=== PATIENT | female | born 1965 | race Caucasian/White ===

== ENCOUNTER 2016-09-21 06:18 | Inpatient (IN) | payer OTHER ==
[2016-09-14 13:19] LABS: HEMATOCRIT 36.1 % (37.0-47.0); HEMOGLOBIN 12.3 gm/dL (12.0-15.0); MCH 29.8 pg (26.0-34.0); MCHC 34.2 g/dL (28.0-37.0); RBC 4.14 mil/uL (4.20-5.00); RDW 13.3 % (10.5-14.5); WBC 7.2 thou/uL (4.0-11.0)
[2016-09-14 13:22] LABS: URINE BILIRUBIN NEGATIVE (Negative); URINE BLOOD TRACE (Negative); URINE COLOR YELLOW; URINE GLUCOSE-RANDOM* NEGATIVE (Negative); URINE KETONES NEGATIVE (Negative); URINE LEUKOCYTES-REFLEX NEGATIVE (Negative); URINE PROTEIN (DIPSTICK) NEGATIVE (Negative); URINE UROBILINOGEN 0.2 E.U./dl (0.2-1.0)
[2016-09-14 13:33] LABS: ALBUMIN 3.4 g/dL (3.4-5.0); CALCIUM 9.2 mg/dL (8.5-10.1); CREATININE 0.9 mg/dL (0.6-1.0); POTASSIUM 3.7 mmol/L (3.5-5.1)
[2016-09-14 13:35] LABS: PROTIME 10.2 Seconds (9.3-11.4)
[~2016-09-21] VITALS: Ht 167.6 cm; Wt 66.8 kg
--- NOTE | ~2016-09-21 | HC ---
[facility] [place] [address] CONSULTATION Name: AMARIS MABRY Room #: 406-P [facility] IN .R.#: [id number] Admission: 10/12/16 Attend Phys: Joseph Cisneros MD Discharge: Date of : 67 Report #: [id number] THIS REPORT FOR: //name// CC: Maria R Cisneros DATE OF SERVICE: 10/14/2016 HISTORY OF PRESENT ILLNESS: The patient is a 51-year-old white female with bilateral total hip arthroplasty, chronic pain syndrome was admitted with a loose left acetabular cup. She underwent surgical intervention and was noted to have an infected left total hip arthroplasty. She underwent explantation with placement of the spacer 10/12/2016. She is limited to toe touch weightbearing. We are seeing her in rehabilitation medicine consultation. PAST MEDICAL HISTORY: As noted above. She also has a history of ADD. HABITS: Positive tobacco usage. Occasional alcohol. No history of drug abuse. ALLERGIES: No known drug allergies. MEDICATIONS: Please see the full medication listing. SOCIAL HISTORY: Lives in a house with her , 2 steps in. Premorbidly utilized a walker, noted to be a 4-wheeled walker. She has been on IV vancomycin before in the past. There is a sister visiting from [place] that could assist with her. The apparently works during the day. REVIEW OF SYSTEMS: Did not offer any current complaints of chest pain, shortness of breath or abdominal discomfort. She has some left hip discomfort as expected. Denies any problems with her right total hip replacement. PHYSICAL EXAMINATION: GENERAL: She is a pleasant, slender 51-year-old white female in no obvious distress. VITAL SIGNS: Last recorded temp 98.2, pulse 86, respirations 18, blood pressure 131/79. She is alert, oriented, appropriate. HEENT: Appeared to be benign. NEUROLOGIC: Cranial nerves are grossly intact. Facies are symmetric. EXTREMITIES: She has functional range of motion of both upper extremities without obvious focal weakness. DTRs are 1. In her lower extremities, she has an old right total hip replacement incision intact. No calf swelling. Appears to have good strength of that right lower extremity. Left hip incision is dressed. There is no focal calf swelling. She has discomfort moving that left hip. She can move the left knee with strength, probably a grade 4- to 4/5. Left ankle dorsiflexion appeared to be at a 4+/5. Tone appeared intact. She [address] [address] CONSULTATION Name: AMARIS MABRY Room #: 406-P [facility] IN ..#: [id number] Admission: 10/12/16 Attend Phys: Joseph Cisneros MD Discharge: Date of : 67 Report #: [id number] was min assist with sit to stand. Gait was 2 feet contact guard front-wheeled walker. Toilet transfers are min assist. ASSESSMENT: A 51-year-old white female with the following problems: 1. 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 2. Prior right total hip hemiarthroplasty. 3. Chronic pain syndrome, on methadone. 4. Attention deficit disorder. PLAN: The patient is continuing in therapy evaluations. Insurance will be checked regarding a potential acute in-hospital inpatient rehabilitation stay. Infectious Disease is following closely as well as Orthopedics and they could continue to follow while the patient is on the acute inpatient rehab pineda. We will be glad to follow along with you regarding rehab therapy needs. <ELECTRONICALLY SIGNED> By: Mathew Bagley MD 10/14/16 1350 1258 1335 Mathew Bagley MD /nt
--- NOTE | ~2016-09-21 | O ---
[facility] [place] [address] OPERATIVE REPORT Name: AMARIS MABRY Room #: 406-P [facility] IN M.R.#: [id number] Admission: 10/12/16 Attend Phys: Joseph Cisneros MD Discharge: Date of : 67 Report #: [id number] THIS REPORT FOR: //name// CC: Maria R Cisneros DATE OF SERVICE: 10/12/2016 PREOPERATIVE DIAGNOSIS: Loose acetabular cup, total hip arthroplasty. POSTOPERATIVE DIAGNOSIS: Infected left total hip arthroplasty. PROCEDURE: 1. Explant left total hip arthroplasty. 2. Extended trochanteric osteotomy with repair. 3. Placement of antibiotic cement spacer, left hip. SURGEON: Jospeh Cisneros MD APPRENTICE MACHINIST OUTSIDE: Barbara Jean PA-C. ANESTHESIA: General endotracheal. IMPLANTS: Two Terrazas and Nephew Accord cerclage cables for fixation of extended trochanteric osteotomy. ESTIMATED BLOOD LOSS: 300 mL. SPECIMENS: Cultures were taken x 2 as well as intraoperative frozen section was performed which showed multiple neutrophils per high power field on 1 specimen. CONDITION UPON LEAVING THE OR: Stable. INDICATIONS FOR PROCEDURE: The patient is a 51-year-old female who has previously undergone left total hip arthroplasty several years ago by Dr. Gopi Rosa. In her acute postop period, she had subsidence of her stem and a fracture of her femur that was treated with a removal of the stem and cerclage cable and reimplantation. She subsequently added infection that was treated with a debridement. She subsequently has had continued left hip and groin pain for several years and presented to me for a second opinion. She had obvious lucency surrounding her acetabulum and workup for infection was performed. Aspiration of the hip joint was negative for any fluid. Her sed rate and CRP were normal and it was felt that we could proceed with possible revision with possibility of antibiotic spacer placement if infection was found at time of surgery. She understood the risk and benefit of this and agreed to proceed. [facility] [address] [place] [address] OPERATIVE REPORT Name: AMARIS MABRY Room #: 406-P [facility] IN [facility].#: [id number] Admission: 10/12/16 Attend Phys: Joseph Cisneros MD Discharge: Date of : 67 Report #: [id number] DESCRIPTION OF PROCEDURE: Risks, benefits, alternatives and complications were discussed in detail with the patient including but not limited to risk of anesthesia, risk of damage to nerves, arteries, blood vessels, risk for infection, blood loss, intraoperative fracture, need for reoperation. Informed consent was obtained from the patient. The left hip was appropriately marked in the preoperative holding area. IV Ancef was given for preoperative antibiotics. She was brought to the operating room and placed in supine position on operating room table. General endotracheal anesthesia was induced without complication. She was then placed in the right lateral decubitus position with left hip uppermost. Left hip and lower extremity were prepped and draped in normal sterile fashion. Timeout was performed properly identifying the patient, procedure as well as the instrumentation. All in the operating room were in agreement. A standard posterior approach to the hip was made with a 10 blade through the skin. Dissection was taken down to the fascia with Bovie cautery and cleaned off with Odom elevator. A fresh #10 blade was used to make a fascial incision. This was taken proximally and distally with curved Yan scissor. Charnley retractor was placed and trochanteric bursa was taken down with Bovie cautery. Piriformis tendon was identified, tagged and taken down with Bovie. The short external rotators were also taken down with Bovie cautery. Capsulotomy was made and upon entering the capsule, there was small fluid and cultures of this were taken x 2. Capsular ends were tagged for later repair. The hip was dislocated and the femoral head was removed from the stem. Slap Hammer was placed on the stem and this was back slapped to see if it was unstable and it was not. Deep acetabular retractors were placed. Three separate synovial tissue specimens were sent to pathology for intraoperative frozen section where these specimens came back with multiple neutrophils per high power field. It was felt this was consistent with chronic infection given her history and clinical findings. The acetabular cup was actually loose and was easily removed without any sort of dissection or Slap Hammer. Behind this there was obvious fibrous tissue with several cystic areas of the bone that were curetted out. Acetabulum was then reamed to a size 51 to get down to good bleeding cancellous bone. Given that this was an infection, it was felt that complete removal of the hardware would be necessary and attention was turned to the stem. Rigid and flexible osteotomes were then used to dissect around the proximal portion of the stent. Multiple attempts to remove the stem with a Slap Hammer were made without success. After prolonged effort in trying to remove the stems out, it was felt that an extended trochanteric osteotomy would be needed. The incision was then taken distally with a 10 blade and deep dissection was made. The vastus lateralis was retracted anteriorly. An oscillating saw was used to make extended trochanteric osteotomy longitudinally along the posterior border of the femur and around the lateral aspect of the femur. Osteotome was then used to crack the osteotomy with clamshell to open the femur. The stem was still well fixed and had to be removed using an osteotome. After this, the femur and acetabulum were thoroughly irrigated with normal saline using pulse lavage. The extended trochanteric osteotomy was fixed with 2 Terrazas and Nephew Accord cerclage cables. Antibiotic cement was then [facility] [address] [place] [address] OPERATIVE REPORT Name: AMARIS MABRY Room #: 406-P [facility] IN .R.#: [id number] Admission: 10/12/16 Attend Phys: Joseph Cisneros MD Discharge: Date of : 67 Report #: [id number] mixed on the back table, which was 1 gram of vancomycin, 1.2 grams of tobramycin per bag and a pediatric suction bulb was used to form a femoral head. This was then placed on cement that went down into the canal of the femur and the hip was reduced and held reduced while the cement hardened. After this, the wound was again thoroughly irrigated. A deep drain was placed. The piriformis was repaired with 0 FiberWire. The fascia was closed with 0 Vicryl, skin was closed with 2-0 Vicryl, skin haydee and Prevena dressings were applied. The patient tolerated this procedure well and went to the recovery room under care of anesthesia postoperatively. <ELECTRONICALLY SIGNED> By: Joseph Cisneros MD 10/13/16 0814 1418 1516 Joseph Cisneros MD /nt
--- NOTE | ~2016-09-21 | EKG ---
[place] [address] [facility] [place] [address] ELECTROCARDIOGRAM REPORT Name: AMARIS MABRY Ramesh Room #: [facility]#: [id number] Admission: Attend Phys: Joseph Cisneros MD Discharge: Date of : 67 Report #: [id number] THIS REPORT FOR: //name// [facility] Test Date: 2016-09-14 Test Time: 13:18:11 Pat Name: AMARIS MABRY Department: Room: Gender: F [employer]: leanne : 1965 Requested By: Joseph Cisneros Order Number: [id number] MD: Giuliano Lewis Measurements Intervals [place] Rate: 68 P: 64 NV: 162 QRS: 52 QRSD: 100 T: 54 QT: 454 QTc: 483 Interpretive Statements Sinus rhythm Abnormal R-wave progression, early transition Baseline wander in lead(s) V5 No previous ECG available for comparison Electronically Signed On 09-14-2016 18:15:11 CDT by Giuliano Lewis [email or web address] <ELECTRONICALLY SIGNED> By: Giuliano Lewis MD, [facility] 09/14/16 1815 1318 1318 Giuliano Lewis MD, FACC /EPI
--- NOTE | ~2016-09-21 | S ---
[facility] [place] [address] SURGICAL PATH RPT PROCEDURE Name: AMARIS MABRY Room #: 406-P ADM IN M.R.#: [id number] Admission: 10/12/16 Date of : 67 Discharge: Report #: [id number] Path Case #: [id number] PATHOLOGY REPORT COLLECTION DATE: 10/12/2016 RECEIVED DATE: 10/12/2016 SUBMITTING PHYS: Dr. Joseph Cisneros OTHER PHYS: Dr. Maria R Orellana SPECIMEN(S) RECEIVED: A.Synovium left hip * * * * * * * * * * * * FINAL DIAGNOSIS: Synovium, left hip synovium, biopsy: - Acute inflammation with approximately 16-20 neutrophils/HPF associated with fibrinoid necrosis identified in a few fragments. - Remainder fragments devoid of any inflammatory changes. (IUV:leticia; 10/13/2016) COMMENT: Irrigation Flume Layer slides (A1) are co-reviewed by Dr. Radha Turner, who concurs with my diagnosis. (IUV:leticia; 10/13/2016) PATHOLOGIST: Joyce Pang M.D. REPORT ELECTRONICALLY SIGNED BY: Joyce Pang M.D. DATE/TIME: 10/13/2016 16:39 * * * * * * * * * * * * GROSS PATHOLOGY: Received fresh from the OR, labeled, "Jeffrey Synovium left hip", is a red to pink-melara fragment of tissue. Few showing blue-green discoloration measuring an aggregate of 3.0 x 3.0 cm. Irrigation Flume Layer sections are submitted for frozen section as FSA1, subsequently submitted for permanent sections as A1. The unfrozen portion of the tissue is submitted in entirety for permanent sections as A2. (IUV:mml; 10/12/2016) FROZEN SECTION DIAGNOSIS: (Joyce Pang MD) FSA1. Synovium, left hip, biopsy: - Greater than 12 neutrophils per HPF along with a fragment of fibrinoid degeneration. The findings are discussed with Dr. Joseph Cisneros in OR2 at [facility] and a written report is placed in the patient's chart. [facility] [place] [address] SURGICAL PATH RPT PROCEDURE Name: AMARIS MABRY Room #: 406-P [facility] IN .R.#: [id number] Admission: 10/12/16 Date of : 67 Discharge: Report #: [id number] Path Case #: [id number] (IUV:mml; 10/12/2016) Testing performed by [facility] at [facility] [address] [place] [address] CLINICAL HISTORY: Left hip retained hardware, undergoing total hip revision. INITIAL CPT CODE(S): A; 62323, 49779 Professional services performed by [facility] at [facility] [address] [place] [address] Technical services performed by [facility] at [address] [place] [address], [address], [place] [address]. [facility] [address] [place] [address] PHONE: [phone] DIRECTOR: Bakari Trevino M.D. * * * END OF REPORT * * *
--- NOTE | ~2016-09-21 | O ---
[facility] [place] [address] OPERATIVE REPORT Name: AMARIS MABRY Room #: 406-P [facility]..#: [id number] Admission: 10/12/16 Attend Phys: Joseph Csineros MD Discharge: 10/23/16 Date of : 67 Report #: [id number] THIS REPORT FOR: //name// CC: Maria R Cisneros DATE OF SERVICE: 10/19/2016 PREOPERATIVE DIAGNOSIS: Dislocated left hip antibiotic cement spacer. POSTOPERATIVE DIAGNOSIS: Dislocated left hip antibiotic cement spacer. PROCEDURE: 1. Revision left hip antibiotic cement spacer. 2. Debridement and irrigation, left hip joint. SURGEON: Joseph Cisneros MD. TILE AND MARBLE INSTALLER: Barbara Jean PA-C. ANESTHESIA: General endotracheal. ESTIMATED BLOOD LOSS: 100 mL. COMPLICATIONS: Further fracture of the extended trochanteric osteotomy needing to be fixed with one Accord cable. SPECIMENS: Cultures were taken times 2. CONDITION UPON LEAVING THE OPERATING ROOM: Stable. INDICATIONS FOR PROCEDURE: The patient is a 51-year-old female who previously has had an explantation of her left total hip arthroplasty secondary to infection. She initially had an articulating spacer placed and on 10/18/2016, x-ray was taken secondary to increased pain showed her to have a dislocation of her spacer. After discussion with she and her family, they elected for revision of the antibiotic cement spacer. DESCRIPTION OF PROCEDURE: Risks, benefits, alternatives, complications were discussed in detail with the patient including but not limited to risk of anesthesia, risk of damage to nerves, arteries, blood vessels, risk for further fracture, infection and need for reoperation. Informed consent was obtained from the patient. Left hip was appropriately marked in the preoperative holding area. She was brought to the operating room and placed in supine position on operating room table. General endotracheal anesthesia was induced without complications and then placed in the right lateral decubitus position with the [facility] [address] [place] [address] OPERATIVE REPORT Name: AMARIS MABRY Room #: 406-P [facility] IN ..#: [id number] Admission: 10/12/16 Attend Phys: Joseph Cisneros MD Discharge: 10/23/16 Date of : 67 Report #: [id number] left hip uppermost. Left hip and lower extremity were then prepped and draped in sterile fashion. Timeout was performed properly identifying the patient, procedure as well as the instrumentation. All in the operating were in agreement. The previous incision was then opened with a 10 blade through the skin and the fascia closure was opened with a 10 blade. Upon entering the deep fascia, the spacer was serosanguineous fluid that was drained. Cultures of this were taken. The hip with antibiotic spacer was obviously dislocated and the femur was internally rotated and upon internally rotating the femur, the lesser trochanter fractured off the femur and we did that we would need to fix this also. The antibiotic cement spacer was removed from the femur and the acetabular and femur were thoroughly irrigated with normal saline using pulse lavage. After this, the cable passer was used to pass the cable around the left intertrochanteric fracture. This was reduced as well . After this, antibiotic cement was mixed by hand on the back table with 1 gram of vancomycin and 1.2 grams of tobramycin per bag. Her acetabulum was then visualized and palpated and there was a large superior defect in the acetabulum. It was felt that an articulating spacer would not be possible. It was then decided to just make a static spacer and put cement into the acetabulum as well as small amount into the femoral canal. The cement was allowed to cure to a doughy state and this was placed in the acetabulum and the femoral canal. After the cement cured, the ____ was thoroughly irrigated again. A deep drain was placed. The fascia was closed with 0 Vicryl, skin was closed with 2-0 Vicryl and skin haydee and Prevena dressings were applied. The patient tolerated this procedure well and went to the recovery room under the care of anesthesia postoperatively. <ELECTRONICALLY SIGNED> By: Joseph Cisneros MD 10/26/16 1010 1429 1631 Joseph Cisneros MD /nt
[~2016-09-21 06:18] MED LIST: ADDERALL 30 MG30 MG PO; ALLEGRA ALLERG180 MG PO; CALCIUM 600 +1 EAC1 PO; CENTRUM WOMEN1 EACH PO; FOLIC ACID1 MG PO; HYDROCODONE-APA1 TA1 PO; IBUPROFEN 800800 M1 PO; LYRICA 50 MG50 MG PO; METHADONE HCL40 MG PO; RESTORIL15 MG PO
[2016-10-12] VITALS (8 sets, daily range): BP systolic 101–153; BP diastolic 69–118
[2016-10-12 21:22] LABS: BASOPHILS 0.5 % (0.0-2.0); EOSINOPHILS 0.3 % (0.0-3.0); LYMPHOCYTES 12.7 % (24.0-44.0); MCV 87.7 fL (80.0-100.0); MONOCYTES 5.3 % (1.0-8.0); PLATELET COUNT 270 thou/uL (150-400); POLYS 81.2 % (36.0-66.0); RBC 2.22 mil/uL (4.20-5.00); RDW 13.6 % (10.5-14.5); WBC 14.8 thou/uL (4.0-11.0)
[2016-10-12 21:26] LABS: MANUAL DIFF NO
[2016-10-12 21:32] LABS: ALBUMIN 2.4 g/dL (3.4-5.0); CALCIUM 7.5 mg/dL (8.5-10.1); CREATININE 0.7 mg/dL (0.6-1.0); POTASSIUM 3.7 mmol/L (3.5-5.1); TOTAL BILIRUBIN 0.3 mg/dL (<0.1-1.0); TOTAL PROTEIN 5.3 g/dL (6.4-8.2)
[2016-10-12 21:36] LABS: HEMATOCRIT 19.5 % (37.0-47.0); HEMOGLOBIN 6.4 gm/dL (12.0-15.0)
[2016-10-13] VITALS: BP 107/62
[2016-10-13 04:00] VITALS: BP 106/66
[2016-10-13 05:55] LABS: HEMOGLOBIN 6.7 gm/dL (12.0-15.0)
[2016-10-13 05:56] LABS: MCH 30.2 pg (26.0-34.0); MCHC 34.1 g/dL (28.0-37.0); MCV 88.7 fL (80.0-100.0); RBC 2.22 mil/uL (4.20-5.00); RDW 13.6 % (10.5-14.5)
[2016-10-13 06:05] LABS: HEMATOCRIT 19.7 % (37.0-47.0)
[2016-10-13 08:00] VITALS: BP 111/65
[2016-10-13 13:46] VITALS: BP 110/59; BP 128/86
[2016-10-13 20:14] VITALS: BP 117/64; BP 119/70; BP 129/74
[2016-10-14 04:51] VITALS: BP 130/76
[2016-10-14 06:18] LABS: HEMATOCRIT 25.3 % (37.0-47.0); MCH 30.4 pg (26.0-34.0); MCHC 34.4 g/dL (28.0-37.0); MCV 88.5 fL (80.0-100.0); RBC 2.86 mil/uL (4.20-5.00); RDW 14.3 % (10.5-14.5); WBC 10.4 thou/uL (4.0-11.0)
[2016-10-14 06:21] LABS: HEMOGLOBIN 8.7 gm/dL (12.0-15.0)
[2016-10-14 07:20] VITALS: BP 131/79
[2016-10-14 15:00] VITALS: BP 144/87
[2016-10-14 19:23] VITALS: BP 123/65
[2016-10-15 04:12] LABS: HEMATOCRIT 23.3 % (37.0-47.0); MCH 30.3 pg (26.0-34.0); MCHC 34.2 g/dL (28.0-37.0); MCV 88.6 fL (80.0-100.0); RBC 2.63 mil/uL (4.20-5.00); RDW 14.5 % (10.5-14.5); WBC 9.8 thou/uL (4.0-11.0)
[2016-10-15 07:21] VITALS: BP 101/51
[2016-10-15 07:53] VITALS: BP 120/66
[2016-10-15 19:12] VITALS: BP 117/79
[2016-10-16 03:11] VITALS: BP 123/88
[2016-10-16 06:28] LABS: BASOPHILS 0.5 % (0.0-2.0); EOSINOPHILS 7.7 % (0.0-3.0); HEMATOCRIT 23.1 % (37.0-47.0); HEMOGLOBIN 7.9 gm/dL (12.0-15.0); LYMPHOCYTES 25.5 % (24.0-44.0); MCH 30.2 pg (26.0-34.0); MCV 88.8 fL (80.0-100.0); PLATELET COUNT 227 thou/uL (150-400); POLYS 59.3 % (36.0-66.0); RDW 14.3 % (10.5-14.5); WBC 8.5 thou/uL (4.0-11.0)
[2016-10-16 06:32] LABS: MANUAL DIFF NO
[2016-10-16 06:40] LABS: CALCIUM 8.3 mg/dL (8.5-10.1); CREATININE 0.7 mg/dL (0.6-1.0); POTASSIUM 3.2 mmol/L (3.5-5.1)
[2016-10-16 08:00] VITALS: BP 129/84
[2016-10-16 16:00] VITALS: BP 122/86
[2016-10-16 19:37] VITALS: BP 119/76
[2016-10-17 05:25] VITALS: BP 116/79
[2016-10-17 08:56] VITALS: BP 116/64
[2016-10-17 17:20] VITALS: BP 110/62
[2016-10-18 04:36] VITALS: BP 116/73
[2016-10-18 07:48] VITALS: BP 128/79
[2016-10-18 14:07] LABS: ABSOLUTE NEUTROPHILS 6.7 thou/uL (1.4-8.2); BASOPHILS 0.8 % (0.0-2.0); EOSINOPHILS 7.9 % (0.0-3.0); HEMOGLOBIN 8.5 gm/dL (12.0-15.0); LYMPHOCYTES 17.5 % (24.0-44.0); MCH 29.8 pg (26.0-34.0); MCHC 33.9 g/dL (28.0-37.0); MCV 87.8 fL (80.0-100.0); MONOCYTES 5.8 % (1.0-8.0); RBC 2.85 mil/uL (4.20-5.00); RDW 14.1 % (10.5-14.5); WBC 9.9 thou/uL (4.0-11.0)
[2016-10-18 14:08] LABS: MANUAL DIFF NO; PLATELET COUNT 365 thou/uL (150-400)
[2016-10-18 14:14] LABS: CALCIUM 8.9 mg/dL (8.5-10.1); CREATININE 0.7 mg/dL (0.6-1.0); POTASSIUM 3.7 mmol/L (3.5-5.1)
[2016-10-18 16:14] VITALS: BP 135/81
[2016-10-18 20:00] VITALS: BP 131/71
[2016-10-19 04:00] VITALS: BP 132/76
[2016-10-19 07:47] VITALS: BP 116/77
[2016-10-19 08:03] LABS: BASOPHILS 0.5 % (0.0-2.0); EOSINOPHILS 8.6 % (0.0-3.0); HEMATOCRIT 21.6 % (37.0-47.0); HEMOGLOBIN 7.1 gm/dL (12.0-15.0); LYMPHOCYTES 22.7 % (24.0-44.0); MCH 29.5 pg (26.0-34.0); MCHC 32.9 g/dL (28.0-37.0); MCV 89.6 fL (80.0-100.0); MONOCYTES 8.5 % (1.0-8.0); PLATELET COUNT 322 thou/uL (150-400); POLYS 59.7 % (36.0-66.0); RBC 2.41 mil/uL (4.20-5.00); RDW 14.4 % (10.5-14.5); WBC 8.3 thou/uL (4.0-11.0)
[2016-10-19 08:10] LABS: CALCIUM 8.3 mg/dL (8.5-10.1); CREATININE 0.7 mg/dL (0.6-1.0); POTASSIUM 3.3 mmol/L (3.5-5.1)
[2016-10-19 08:20] LABS: MANUAL DIFF NO
[2016-10-19 20:00] VITALS: BP 106/59
[2016-10-20] VITALS: BP 106/59; BP 111/62
[2016-10-20 04:00] VITALS: BP 133/76
[2016-10-20 08:04] LABS: HEMATOCRIT 20.9 % (37.0-47.0); HEMOGLOBIN 7.1 gm/dL (12.0-15.0); MCH 30.2 pg (26.0-34.0); MCHC 33.9 g/dL (28.0-37.0); MCV 88.9 fL (80.0-100.0); RBC 2.35 mil/uL (4.20-5.00); RDW 14.5 % (10.5-14.5); WBC 10.7 thou/uL (4.0-11.0)
[2016-10-20 08:52] VITALS: BP 115/73
[2016-10-20 14:48] VITALS: BP 118/68; BP 120/77
[2016-10-20 16:55] VITALS: BP 117/75; BP 118/68; BP 122/75
[2016-10-20 20:05] VITALS: BP 117/67
[2016-10-21 04:28] VITALS: BP 116/72
[2016-10-21 06:11] LABS: HEMATOCRIT 28.1 % (37.0-47.0); MCH 29.5 pg (26.0-34.0); MCHC 33.5 g/dL (28.0-37.0); RBC 3.19 mil/uL (4.20-5.00); RDW 14.6 % (10.5-14.5); WBC 10.7 thou/uL (4.0-11.0)
[2016-10-21 06:13] LABS: HEMOGLOBIN 9.4 gm/dL (12.0-15.0)
[2016-10-21 06:24] LABS: CALCIUM 8.1 mg/dL (8.5-10.1); CREATININE 0.7 mg/dL (0.6-1.0); POTASSIUM 3.3 mmol/L (3.5-5.1)
[2016-10-21 08:23] VITALS: BP 113/72
[2016-10-21 20:55] VITALS: BP 95/62
[2016-10-22 03:31] VITALS: BP 117/63; BP 93/58
[2016-10-22 05:56] LABS: HEMATOCRIT 29.4 % (37.0-47.0); HEMOGLOBIN 9.9 gm/dL (12.0-15.0); MCH 29.4 pg (26.0-34.0); MCHC 33.7 g/dL (28.0-37.0); MCV 87.1 fL (80.0-100.0); RBC 3.38 mil/uL (4.20-5.00); RDW 14.5 % (10.5-14.5); WBC 9.1 thou/uL (4.0-11.0)
[2016-10-22 07:55] VITALS: BP 97/71
[2016-10-22] MEDS ORDERED: OXYCODONE HCL30 MG PO (11:25)
[2016-10-22] MEDS ORDERED: CVS BUFFERED A325 MG PO (11:25)
[2016-10-22] MEDS ORDERED: MS CONTIN 30 MG30 M1 PO (11:25)
[2016-10-22 18:45] VITALS: BP 106/64
[2016-10-23 03:56] VITALS: BP 98/63
[2016-10-23 08:07] VITALS: BP 103/63
== END 2016-10-23 13:33 | DRG 463 ==
LOC: PRE → 4N 10-12 05:21 → TBA 10-12 05:21 → PRE 10-12 15:09 → 4N 10-12 15:18 → PRE 10-12 15:29 → 4N 10-23 13:33
PROVIDERS: Family Medicine; Orthopaedic Surgery; Specialist
PROC: 0SPE0JZ Removal of Synthetic Substitute from Left Hip Joint, Acetabular Surface, Open Approach (ICD-10-PCS; principal; 2016-10-12)
PROC: 0QP704Z Removal of Internal Fixation Device from Left Upper Femur, Open Approach (ICD-10-PCS; principal; 2016-10-12)
PROC: 0SHB08Z Insertion of Spacer into Left Hip Joint, Open Approach (ICD-10-PCS; principal; 2016-10-12)
PROC: 02HV33Z Insertion of Infusion Device into Superior Vena Cava, Percutaneous Approach (ICD-10-PCS; 2016-10-13)
PROC: 30233N1 Transfusion of Nonautologous Red Blood Cells into Peripheral Vein, Percutaneous Approach (ICD-10-PCS; 2016-10-13)
PROC: 0SBB0ZZ Excision of Left Hip Joint, Open Approach (ICD-10-PCS; 2016-10-19)
PROC: 0SWB08Z Revision of Spacer in Left Hip Joint, Open Approach (ICD-10-PCS; 2016-10-19)
DX: T84.52XA Infection and inflammatory reaction due to internal left hip prosthesis, initial encounter (principal); A41.9 Sepsis, unspecified organism; E43 Unspecified severe protein-calorie malnutrition; M86.9 Osteomyelitis, unspecified; S73.005A Unspecified dislocation of left hip, initial encounter; Z96.643 Presence of artificial hip joint, bilateral; G89.4 Chronic pain syndrome; F98.8 Other specified behavioral and emotional disorders with onset usually occurring in childhood and adolescence; D64.9 Anemia, unspecified; Z87.891 Personal history of nicotine dependence; Z79.899 Other long term (current) drug therapy; Z68.23 Body mass index [BMI] 23.0-23.9, adult
CPT/HCPCS: 10790; 27000; 50010; 50101; 50382; 50414; 50455; 50612; 50939; 50953; 51057; 51130; 51225; 51226; 51412; 51771; 53000; 53078; 53367; 55389; 56524; 56527; 56528; 56530; 57095; 62110; 62900; 70005

== ENCOUNTER → 2016-11-18 | Outpatient (CLI) | payer OTHER ==
[~2016-11-18] MED LIST changes: +CVS BUFFERED A325 MG PO; +MS CONTIN 30 MG30 M1 PO; +OXYCODONE HCL30 MG PO
== END | disposition home or self-care (01) ==
LOC: OPONC 11:39
DX: T82.898A Other specified complication of vascular prosthetic devices, implants and grafts, initial encounter (principal)
CPT/HCPCS: 27000